=== PATIENT | male | born 1990 | race American Indian/Alaskan Native ===

== ENCOUNTER 2017-10-22 11:47 | Emergency (ER) | payer MEDICAID ==
[2017-10-22 11:50] VITALS: BMI 22.2
[2017-10-22 11:51] VITALS: BP 123/79; PULSE 84; RESP 17; TEMP 97.6
[2017-10-22 12:15] VITALS: O2SAT 98
--- NOTE | 2017-10-22 12:21 | ED PDOC ---
HPI: Psych/Substance Abuse Time Seen by Provider: 10/22/17 12:14 Chief Complaint (Nursing): Med Refill Chief Complaint (Provider): crisis eval History Per: Patient Additional Complaint(s): 27-year-old male with history of bipolar disorder presents to emergency room for crisis eval and med refill. Patient takes Depakote 500 mg daily and Seroquel 400 mg daily and has not had his medications in 3 days. He is currently non-domiciled. He denies suicidal or homicidal ideation. PMD: none Past Medical History Reviewed: Historical Data, Nursing Documentation, Vital Signs Vital Signs: Last Vital Signs Temp 97.6 F 10/22/17 11:50 Pulse 84 10/22/17 11:50 Resp 17 10/22/17 11:50 BP 123/79 10/22/17 11:50 Pulse Ox 98 10/22/17 12:13 - Medical History PMH: Bipolar Disorder - Surgical History Surgical History: No Surg Hx - Family History Family History: States: No Known Family Hx - Living Arrangements Living Arrangements: Other (non-domiciled) - Social History Current smoker - smoking cessation education provided: Yes ("sometimes") Alcohol: Social Drugs: Denies - Home Medications Home Medications: Ambulatory Orders Medication Instructions Recorded Divalproex [Depakote] 500 mg PO DAILY #7 tab 10/22/17 Quetiapine Fumarate [Seroquel] 400 mg PO DAILY #7 tablet 10/22/17 - Allergies Allergies/Adverse Reactions: Allergies Allergy/AdvReac Type Severity Reaction Status Date / Time haloperidol [From Haldol] Allergy Mild RASH Verified 10/22/17 12:12 Review of Systems ROS Statement: Except As Marked, All Systems Reviewed And Found Negative Psych: Positive for: Other (h/o bipolar, med refill, denies SI/HI) Physical Exam - Reviewed Nursing Documentation Reviewed: Yes Vital Signs Reviewed: Yes - Physical Exam Appears: Positive for: Well, Non-toxic, No Acute Distress Skin: Positive for: Normal Color. Negative for: Rash Eye Exam: Positive for: Normal appearance Cardiovascular/Chest: Positive for: Regular Rate, Rhythm Respiratory: Positive for: Normal Breath Sounds Neurologic/Psych: Positive for: Alert, Oriented - ECG O2 Sat by Pulse Oximetry: 98 Pulse Ox Interpretation: Normal Medical Decision Making Medical Decision Makin27 y/o M here for crisis eval and med refill. Plan: Crisis consult As per crisis counselor and psychiatrist fermentation engineer Dr. Benavidez, patient does not meet criteria for admission. As per Dr. Benavidez patient was given one week supply of Depakote and Seroquel. He was referred for outpatient follow-up. Disposition - Clinical Impression Clinical Impression: Bipolar disorder - Patient ED Disposition Is Patient to be Admitted: No Counseled Patient/Family Regarding: Diagnosis, Need For Followup, Rx Given - Disposition Referrals: [facility] [Outside] Disposition: Routine/Home Disposition Time: 12:44 Condition: STABLE Additional Instructions: Take medications as prescribed. Follow-up as directed. Prescriptions: Divalproex [Depakote] 500 mg PO DAILY #7 tab Quetiapine Fumarate [Seroquel] 400 mg PO DAILY #7 tablet Instructions: Bipolar Disorder (DC) Forms: [employer] (Iranian)
== END 2017-10-22 13:06 | disposition home or self-care (01) ==
LOC: H.ER 11:47
DX: F31.9 Bipolar disorder, unspecified (principal); F17.200 Nicotine dependence, unspecified, uncomplicated; Z76.0 Encounter for issue of repeat prescription; Z59.0 Homelessness